=== PATIENT | female | born 1945 | race Caucasian/White ===

== ENCOUNTER → 2018-05-03 | Outpatient (CLI) | payer MEDICARE, OTHER ==
[2016-01-26 16:56] VITALS: BMI 29.4
[~2018-05-03] MED LIST: AMOX-559 PO; ASPI81TA86 PO; BIOT1CAP PO; CALC-852 PO; CLOP75TA43 PO; DIPH0.5D12 IM; FAMC500T18 PO; GLUC100026 PO; GUAI120L3 PO; HYDR-385 PO; LEVO75TA73 PO; LISI2.5T60 PO; MAGN250T34 PO; MAGN500T6 PO; METO25TA93 PO; MULT-865 PO; NITR0.4T3 SL; OMEG100027 PO; OMEG500C7 PO; OXYC-373 PO; PER PO; PNEU0.5D3 IM; PRAV40TA78 PO; ROSU20TA13 PO; lis
--- NOTE | 2018-05-06 09:06 | RADIOLOGY IMAGING REPORT ---
FACILITY: [facility] PATIENT NAME: MIYA MIRANDA : [id number] MR: [id number] V: [id number] EXAM DATE: ORDERING PHYSICIAN: KEZIA SARMIENTO TECHNOLOGIST: Laury Salter PROCEDURE:BILATERAL DIGITAL SCREENING MAMMOGRAM WITH CAD ASSISTED INTERPRETATION & 3D TOMOSYNTHESIS COMPARISON:Prior mammograms 12/20/16, 12/01/15, 11/26/14, 11/26/13, 11/07/12, 11/02/11. INDICATIONS:Screening FINDINGS: Moderately dense fibroglandular tissue is seen throughout the breasts. The parenchymal pattern has remained stable allowing for difference in mammographic technique & patient positioning. There is no evidence of malignant appearing mass, malignant appearing calcifications or other secondary sign of malignancy in either breast. DIAGNOSTIC CATEGORY 1--NEGATIVE. RECOMMENDATIONS: ROUTINE MAMMOGRAM AND CLINICAL EVALUATION. IMPRESSION: BIRADS 1: Negative. No significant abnormality is seen. Dictated by: Anastasia Maldonado M.D. on 05/03/2018 at 15:41 Transcribed by: MICHI on 05/03/2018 at 15:51 Approved by: Anastasia Maldonado M.D. on 05/06/2018 at 9:05 [facility]
== END ==
LOC: MAMO 03:52
PROVIDERS: ATTEND Emergency Medicine
DX: Z12.31 Encounter for screening mammogram for malignant neoplasm of breast (principal)
CPT/HCPCS: 77063; 77067

== ENCOUNTER → 2018-07-18 | Outpatient (CLI) | payer MEDICARE, OTHER ==
[2016-01-26 16:56] VITALS: BMI 29.4
[~2018-07-18] MED LIST changes: +BIOT250012 PO; +CA C1TAB6 PO; +CIPR-214 PO; +CIPR-345 PO; +LISI-362 PO; +ROS10 FT; -ROSU20TA13 PO; +ROSU20TA23 PO; +ROSU20TA5 PO
== END ==
LOC: LAB 12:51
PROVIDERS: ATTEND Emergency Medicine
DX: N39.0 Urinary tract infection, site not specified (principal)
CPT/HCPCS: 81001

== ENCOUNTER 2018-07-23 00:54 | Observation (INO) | payer MEDICARE, OTHER ==
[2018-07-10 07:50] LABS: PLATELET COUNT, AUTOMATED 188 K/uL (150-450)
--- NOTE | 2018-07-10 07:52 | EKG ---
[place] [facility] [place]IENT NAME: MIYA MIRANDA : [id number] MR: [id number] V: [id number] EXAM DATE: ORDERING PHYSICIAN: JOSHUA ALTMAN TECHNOLOGIST: ELYSIA Delgado Reason : PREOP-KNEE Blood Pressure : / mmHG Vent. Rate : 058 BPM Atrial Rate : 058 BPM P-R Int : 166 ms QRS Dur : 092 ms QT Int : 432 ms P-R-T Axes : 073 -36 045 degrees QTc Int : 424 ms Sinus bradycardia Left axis deviation Abnormal ECG When compared with ECG of 29-NOV-2015 11:38, No significant change was found Confirmed by JB BROCK ([id number] on 07/10/2018 11:45:11 AM Referred By: AGAPITO Confirmed By:JB BROCK
[2018-07-22 13:44] LABS: INR 0.99
[2018-07-23] VITALS (14 sets, daily range): BP systolic 101–132; BP diastolic 49–73
[~2018-07-23] VITALS: Ht 165.1 cm; Wt 81.2 kg
[~2018-07-23 00:54] MED LIST changes: -ROS10 FT; -ROSU20TA23 PO
[2018-07-23] MEDS ORDERED: fentaNYL CITR 100 MCG/2 ML AMP ONE (08:32)
[2018-07-23] MEDS ORDERED: LIDOCAINE 2% IV 100 MG/5ML SYR ONE (08:32)
[2018-07-23] MEDS ORDERED: PROPOFOL EMUL(*) 10MG/ML 20 ML 20 ML ONE (08:34)
[2018-07-23] MEDS ORDERED: ASPIRIN 81 MG ENTERIC COATED PO ONE (10:00)
[2018-07-23] MEDS ORDERED: PREGABALIN 75 MG CAPSULE PO ONE (10:15)
[2018-07-23] MEDS ORDERED: CELECOXIB 200 MG CAP PO ONE (10:15)
[2018-07-23] MEDS ORDERED: TRANEXAMIC AC 1000 MG/10ML SDV 1,000 MG in DEXTROSE 5% 50 ML BAG 50 ML IV ONE (10:15)
[2018-07-23] MEDS ORDERED: LIDOCAINE/SOD BICARB 8.4% SYR ID ONE (10:15)
[2018-07-23] MEDS ORDERED: cloNIDine EPIDUR INJ 100MCG/ML 40 MCG, ROPIVACAINE 0.5% 20 ML VIAL 25 ML, EPINEPHrine H... INJ ONE (10:15)
[2018-07-23] MEDS ORDERED: CLINDAMYCIN 900 MG/D5W 50 ML 50 ML IVPB ONE (10:15)
[2018-07-23] MEDS ORDERED: BACITRACIN 50000 UNIT/VIAL 100,000 UNIT in NS 0.9% 3000 ML IRRIGATION BAG 3,000 ML IR ONE (10:15)
[2018-07-23] MEDS ORDERED: ACETAMINOPHEN 500 MG TAB PO ONE (10:15)
[2018-07-23] MEDS ORDERED: MIDAZOLAM 2 MG/2 ML VIAL IVP PRN (10:15)
[2018-07-23] MEDS ORDERED: NORMOSOL R SOLN(*) 1000 ML BAG 1,000 ML IV PRN (10:15)
[2018-07-23] MEDS ORDERED: FAMOTIDINE 20 MG TAB PO ONE (10:15)
[2018-07-23] MEDS ORDERED: DEXAMETHASONE SOD PHOS 10MG/ML ONE ×2 (11:27→14:47)
[2018-07-23] MEDS ORDERED: ONDANSETRON 4 MG/2 ML VIAL ONE ×2 (11:28→14:48)
[2018-07-23] MEDS ORDERED: KETAMINE HCL 200 MG/20 ML MDV ONE (11:32)
[2018-07-23] MEDS ORDERED: NS 0.9% IRRIGATION 1000ML PLCT IR ONE (11:55)
[2018-07-23] MEDS ORDERED: LR 1000 ML BAG 1000 ML IV PRN (13:40)
[2018-07-23] MEDS ORDERED: PROMETHAZINE 25 MG/ML 1 ML AMP IVP PRN (13:40)
[2018-07-23] MEDS ORDERED: MAGNESIUM HYDROXIDE* 30ML UDCP PO PRN (13:40)
[2018-07-23] MEDS ORDERED: HYDROmorphone HCL 2 MG/ML SDV IVP PRN (13:40)
[2018-07-23] MEDS ORDERED: diphenhydrAMINE 50 MG/ML VIAL IVP PRN (13:40)
[2018-07-23] MEDS ORDERED: diphenhydrAMINE 25 MG CAP PO PRN (13:40)
[2018-07-23] MEDS ORDERED: ZOLPIDEM TARTRATE 5 MG TAB PO PRN (13:40)
[2018-07-23] MEDS ORDERED: MAGNESIUM CITRATE 300 ML BTL PO PRN (13:40)
[2018-07-23] MEDS ORDERED: ONDANSETRON 4 MG/2 ML VIAL IVP PRN (13:40)
[2018-07-23] MEDS ORDERED: BISACODYL 10 MG SUPP PR PRN (13:40)
[2018-07-23] MEDS ORDERED: FLUSH 10 ML SYR IVP PRN (13:40)
--- NOTE | 2018-07-23 14:12 | RADIOLOGY IMAGING REPORT ---
FACILITY: [facility] PATIENT NAME: Sofia Silverman : 1945 MR: [id number] V: [id number] EXAM DATE: ORDERING PHYSICIAN: JOSHUA ALTMAN TECHNOLOGIST: Location: [facility] Patient: Sofia Silverman : 1945 Visit/Account:[id number] Date of Sevice: 07/23/2018 Exam type: KNEE LIMITED LEFT History: POST-OP LEFT TOTAL KNEE Comparison: None. Findings: AP and lateral views the left knee demonstrate a left knee arthroplasty in good anatomic alignment. Soft tissue gas projects over the anterior aspect this postoperative knee IMPRESSION: 1. As above Report Dictated By: Anastasia Maldonado MD at 07/23/2018 2:06 PM Report E-Signed By: Anastasia Maldonado MD at 07/23/2018 2:07 PM WSN:[email or web address]
[2018-07-23] MEDS ORDERED: ROS10 FT (15:05)
[2018-07-23] MEDS ORDERED: METOPROLOL TART 50 MG TAB PO PRN (15:35)
--- NOTE | 2018-07-23 15:49 | Hospitalist Consultation ---
History of Present Illness Requesting Physician Dr Ulrich Reason for Consult management of medical comorbidities Chief Complaint L knee osteoarthritis History of Present Illness Thank you for the consultation and allowing us to participate in this patient's care. 72F admitted for observation after L TKA. Procedure appears to have been uneventful, no concerns voiced by patient or spouse. PMHx significant for SVT for which she takes PRN metoprolol tartrate, has not taken this medication since being prescribed. She is also on 81mg ASA, rosuvastatin. Per family she continued to play golf up until surgery and has very great functional status. History Problems: (1) Hypercholesteremia Status: Chronic (2) Coronary artery disease Status: Chronic (3) History of paroxysmal supraventricular tachycardia Status: Chronic Home Meds Active Scripts Magnesium Oxide (MAGNESIUM OXIDE) 500 Mg Tablet, 1 TAB PO DAILY, #1 Prov:KEZIA SARMIENTO MD 04/23/18 Levothyroxine Sodium (LEVOTHYROXINE SODIUM) 75 Mcg Tablet, 75 MCG PO QDAY, #90 TAB 3 Refills Prov:KEZIA SARMIENTO MD 12/17/17 Reported Medications Rosuvastatin Calcium (CRESTOR) 10 Mg Tab, 10 MG FT QDAY, TAB 07/23/18 Biotin (BIOTIN) 2,500 Mcg Capsule, 2500 MCG PO DAILY, CAPSULE 07/16/18 Nitroglycerin (NITROGLYCERIN) 0.4 Mg Tab.subl, 0.4 MG SL Q5MIN PRN for CHEST PAIN 07/16/18 Metoprolol Tartrate (METOPROLOL TARTRATE) 25 Mg Tablet, 1 TAB PO PRN for SVT, #1 TAB 04/23/18 [place]-3 Fatty Acids (FISH OIL CONCENTRATE) 1,000 Mg Capsule, 2 CAP PO DAILY, CAPSULE 12/04/16 Glucosamine Sulfate 2KCL (GLUCOSAMINE) 1,000 Mg Tablet, 1 CAP PO QDAY 12/21/15 Multivitamin (DAILY MULTIPLE VITAMIN) 1 Each Tablet, 1 EACH PO QDAY 12/21/15 Aspirin (ASPIRIN EC) 81 Mg Tablet., 1 TAB PO DAILY 07/22/13 Discontinued Reported Medications Ciprofloxacin Hcl (CIPROFLOXACIN HCL) 500 Mg Tablet, 250 MG PO BID, #14 TAB 07/16/18 Rosuvastatin Calcium (Rosuvastatin Calcium) 20 Mg Tablet, 20 MG PO DAILY 07/16/18 Lisinopril (LISINOPRIL) 10 Mg Tablet, 12.5 MG PO QDAY, TAB 07/16/18 Ca Carbonate/Vitamin D3/Vit K (CALCIUM + D SOFT CHEWABLE TAB) 1 Each Tab.chew, 1 EACH PO DAILY, TAB.CHEW 07/16/18 Pravastatin Sodium (PRAVASTATIN SODIUM) 40 Mg Tablet, 40 MG PO QDAY 07/16/18 Discontinued Scripts Ciprofloxacin 250 Mg (CIPROFLOXACIN 250 MG) 250 Mg Tablet, 250 MG PO BID, #10 TAB 0 Refills Prov:KEZIA SARMIENTO MD 07/12/18 Rosuvastatin Calcium (Rosuvastatin Calcium) 20 Mg Tablet, 1 TAB PO DAILY, #90 TAB 3 Refills Prov:KEZIA SARMIENTO MD 01/07/18 Allergies: Coded Allergies: amoxicillin (Verified Allergy, Unknown, 04/23/18) Uncoded Allergies: HAYFEVER (Allergy, Unknown, 07/22/13) Patient History: FH: HTN (hypertension) MOTHER, , Age:96 sisters sisters sisters FH: total knee replacement Hx Smoking: No Smoking Status: Never Smoker Caffeine/Cups Per Day: NONE Hx Alcohol Use: Yes Hx Substance Use Disorder: No Social Drug Use: Never Review of Systems All Systems Reviewed/Normal: Yes, Except as Noted Gastrointestinal: No Nausea, No Vomiting Musculoskeletal: Pain (post operative, well controlled) Exam Vital Signs Vital Signs Date Time Temp Pulse Resp B/P (MAP) Pulse Ox O2 Delivery O2 Flow Rate FiO2 07/23/18 14:59 96.9 60 16 113/64 (80) 94 Nasal Cannula 3.0 General Appearance: Alert, Awake, No Acute Distress Neuro: No Gross deficits Eyes: PERRLA ENT: Normal Neck: No Masses Cardiovascular: Normal Rhythm & Peripheral Pulses Respiratory: No Respiratory Distress GI: Abd Soft and Non-Tender Extremities: Soft and Non Tender, Warm, Pulses, Perfused; No Edema Integumentary: Skin Intact without Lesion / Mass Psych: Alert & Oriented X3 Assessment and Plan Problems: (1) Osteoarthritis of left knee Assessment & Plan: Post L knee arthroplasty. Will begin ASA 325mg for anticoagulation, PT/OT. Anticipate 2 nights stay and discharge home with outpatient PT. (2) Coronary artery disease Status: Chronic Assessment & Plan: On chronic rosuvastatin, ASA 81mg. Holding 81mg ASA while on 325mg dose. (3) History of paroxysmal supraventricular tachycardia Status: Chronic Assessment & Plan: On chronic PRN metoprolol. Will continue with instruction to let provider know if dose is given as she usually does not take this and may warrant further evaluation. (4) Hypothyroidism Status: Chronic Assessment & Plan: On chronic levothyroxine. Continue. Venous Thromboembolism Antithrombotics Is Pt On Any Antithrombotics?: Yes Exam Sepsis Risk: No Definite Risk MULTANI LAUREANO HUTCHISON DO Jul 23, 2018 15:49
--- NOTE | 2018-07-23 16:15 | OPERATIVE REPORT 1 ---
EVENT DATE: July 23, 2018 SURGEON: Artis Ulrich MD ANESTHESIOLOGIST: Blair Roberto MD ANESTHESIA: General plus spinal. UPPERS EDGE BURNISHER: Fidel Arcos PA-C PREOPERATIVE DIAGNOSIS Left knee osteoarthritis. POSTOPERATIVE DIAGNOSIS Left knee osteoarthritis. PROCEDURE PERFORMED Left total knee arthroplasty. FINDINGS The patient had a significant amount of arthritic changes in the patellofemoral joint and loose fragments associated with this and also lateral cartilage wear. ESTIMATED BLOOD LOSS About 200 mL. DRAINS None. COMPLICATIONS None. TOURNIQUET TIME About 16 minutes. IMPLANTS USED [employer] Attune posterior stabilized, narrow 6 femoral component with a size 5 rotating platform tibia, a 6 x 6 rotating platform posterior stabilized poly insert, and a 35 anatomic patella. SPECIMENS None. INDICATIONS AND HISTORY This patient is a 72-year-old female who presented to the clinic for evaluation of left knee pain and irritation going on for some time. She continued to have pain and irritation despite conservative management, and so therefore, she wanted to go ahead with a total knee arthroplasty. We talked about the implications of the heterotopic ossification, the extra bone spurs around her knee, and that we may not be able to clear all these out, and she understood that, and also there was no guarantee associated with a total knee arthroplasty, and she would have to stay a night in the hospital. After discussion of those risks and benefits, informed consent was obtained at the last clinic visit, and we got her set up to do this today. DESCRIPTION OF PROCEDURE As the patient was brought into the operating room, she and the procedure were both verified. She was given a spinal and then induced and intubated by Anesthesia and laid in the standard supine position. The left leg was then prepped and draped in the usual fashion. A timeout was observed verifying the correct patient and procedure. The standard incision was made over the anterior aspect of the knee. The skin was incised then all the way down to the medial parapatellar approach. I performed a medial parapatellar approach to get into the knee itself. This was when there was noted to be the large osteophytes and heterotopic ossification in this area. I was able to excise these fragments without any major difficulty, and this allowed greater access to the patella. Once I got good access to the patella, I then removed a significant amount of osteophytes off this area, and this helped with exposure for the entirety. I then removed the anterior fat pad as well as the anterior aspect of the medial and lateral menisci, and then I was able to high flex the knee in order to remove the ACL and PCL remnants. I then drilled with the Attune system from [employer] intramedullary drill and then put in the intramedullary guide. Once I was able to do this, I was able to cut 9 mm off the distal femur using the standard jig and then put on the sizing for the femur and found her to be a 6. So therefore, I put on the 6 four-in-one cutting block and then was able to cut the anterior and posterior cuts. I removed the pins and then cut the chamfer cuts without any difficulty. This was then followed by placement of the notch cutting block and then cutting the notch with any major issue, then looking and analyzing and determining that a narrow 6 was needed for the femur. I then turned attention to the tibia where I was able to remove the rest of the posterior menisci and also do some releases associated with this. I was then able to drill the standard guide for the true intramedullary guide down the tibia and then was able to put the intramedullary cutting guide onto the front part of the tibia in order to cut 2 mm off the lateral side, which was the low side for this area. Once I did this, I was then able to cut the top proximal tibia without any difficulty, and then I was able to clean off the rest of the posterior capsule and some of the medial meniscus which had fallen back into the posterior space. I then removed the remainder of the PCL and was able to subluxate the tibia forward. We size it to a 5 and then prepped the tibia without any difficulty. I then removed some posterior osteophytes off the posterior aspect, a little bit more off the medial than the lateral side, and then was able to put the femoral component on and trial the tibial and femoral components without any difficulty with a 5 mm poly. This was found to be just a little bit loose in flexion, so therefore we trialed the 6. I was able to still get it to full extension and then flex it, and there were no signs of major instability, so the 6 poly was chosen. I then turned attention to the patella where we were able to foreign it and cut about 7.5 mm off of this area. I then prepped it and got it sized for a 35 and then drilled the lug nut holes for the femur without any difficulty. We put up the tourniquet and then cleaned everything out, washed it with copious amounts of saline, put a bone plug within the femur, and then we were able to cement the components in without any difficulty. Once the components were cemented in, we let down the tourniquet after 16 minutes, and then the wound was closed. This was closed by using a 0 Stratafix through the medial parapatellar approach. This was then followed by 2-0 Vicryl in the large fat layer, then a 2-0 Stratafix in the subcutaneous layer, then a 4-0 subcuticular running Monocryl, and then a bio-occlusive dressing was applied. We also put in a capsular cocktail injection to try to decrease pain in this area. JIMMY
[2018-07-23] MEDS: CLINDAMYCIN 150 MG CAP PO SCH (18:34)
[2018-07-23] MEDS ORDERED: ASPIRIN 325 MG TAB PO SCH (21:00)
[2018-07-24] MEDS: CLINDAMYCIN 150 MG CAP PO SCH ×2 (03:18→11:32)
[2018-07-24 03:20] VITALS: BP 115/71
[2018-07-24] MEDS: LEVOTHYROXINE SOD 0.075 MG TAB PO SCH (05:56)
[2018-07-24 08:57] VITALS: BP 103/53
[2018-07-24] MEDS: MAGNESIUM OXIDE 400 MG TAB PO SCH ×2 (08:59→09:00)
[2018-07-24] MEDS: ROSUVASTATIN CALCIUM 10 MG TAB PO SCH ×2 (08:59→09:00)
[2018-07-24 09:59] VITALS: Ht 165.1 cm; Wt 81.2 kg
[2018-07-24] MEDS ORDERED: BACITRACIN 50000 UNIT/VIAL 100,000 UNIT in NS 0.9% 3000 ML IRRIGATION BAG 3,000 ML IR ONE (10:15)
--- NOTE | 2018-07-24 10:46 | Hospitalist Progress Note ---
Subjective Progress Notes Subjective She has no complaints this morning. She had no acute events overnight. Patient Complains of: Cardiovascular: No: Chest Pain Respiratory: No: Shortness of Breath Physical Exam Vital Signs Date Time Temp Pulse Resp B/P (MAP) Pulse Ox O2 Delivery O2 Flow Rate FiO2 07/24/18 09:13 Room Air 07/24/18 08:57 98.1 61 18 103/53 (70) 95 1.0 Intake and Output 07/24/18 07:00 Intake Total 2560 ml Balance 2560 ml Intake Oral 860 ml IV Total 1700 ml # Voids 2 General Appearance: Alert, Awake, No Acute Distress, Afebrile Neuro: No Gross deficits Cardiovascular: Regular Rate and Rhythm Respiratory: No Respiratory Distress, Clear to Auscultation Psych: Alert & Oriented X3, Appropriate Mood & Affect Result Diagram: 07/24/18 0555 Assessment and Plan Problems: (1) Osteoarthritis of left knee Assessment & Plan: Post L knee arthroplasty. Will begin ASA 325mg for anticoagulation. She did take her own medications this morning, to include Aspirin 81mg. Her aspirin dose tonight will be adjusted to reflect the dose this morning she took. (2) Coronary artery disease Status: Chronic Assessment & Plan: On chronic rosuvastatin, ASA 81mg. Holding 81mg ASA while on 325mg dose. (3) History of paroxysmal supraventricular tachycardia Status: Chronic Assessment & Plan: On chronic PRN metoprolol. Will continue with instruction to let provider know if dose is given as she usually does not take this and may warrant further evaluation. (4) Hypothyroidism Status: Chronic Assessment & Plan: On chronic levothyroxine. Continue. Exam Sepsis Risk: No Definite Risk TRAMAINE BELLA CLERICAL ORDER FILLER Jul 24, 2018 10:45
[2018-07-24] MEDS ORDERED: ROSU20TA23 PO (10:55)
[2018-07-24 11:32] VITALS: BP 106/52
[2018-07-24 14:09] VITALS: BP 126/67
[2018-07-24 20:20] VITALS: BP 126/63
[2018-07-24] MEDS ORDERED: ASPIRIN 81 MG CHEW PO ONE (21:00)
[2018-07-24 23:28] VITALS: BP 151/66
[2018-07-25 02:34] VITALS: BP 149/79
[2018-07-25] MEDS: LEVOTHYROXINE SOD 0.075 MG TAB PO SCH (05:15)
[2018-07-25 07:13] VITALS: BP 127/55
[2018-07-25] MEDS ORDERED: OXYC-865 PO (07:45)
[2018-07-25] MEDS: MAGNESIUM OXIDE 400 MG TAB PO SCH (09:30)
[2018-07-25] MEDS: ROSUVASTATIN CALCIUM 10 MG TAB PO SCH (09:30)
[2018-07-25] MEDS ORDERED: ASPI-757 PO (10:02)
--- NOTE | 2018-07-25 10:05 | Hospitalist Progress Note ---
Subjective Progress Notes Subjective She has no complaints this morning. She had no acute events overnight. Patient Complains of: Cardiovascular: No: Chest Pain Respiratory: No: Shortness of Breath Physical Exam Vital Signs Date Time Temp Pulse Resp B/P (MAP) Pulse Ox O2 Delivery O2 Flow Rate FiO2 07/25/18 07:41 88 07/25/18 07:41 Room Air 07/25/18 07:13 97.7 63 18 127/55 (79) 1.0 Intake and Output 07/25/18 01:00 Intake Total 1120 ml Balance 1120 ml Intake Oral 1120 ml # Voids 5 General Appearance: Alert, Awake, No Acute Distress, Afebrile Neuro: No Gross deficits Cardiovascular: Regular Rate and Rhythm Respiratory: No Respiratory Distress, Clear to Auscultation GI: Soft and Non-Tender Psych: Alert & Oriented X3, Appropriate Mood & Affect Result Diagram: 07/25/18 0518 Assessment and Plan Problems: (1) Osteoarthritis of left knee Assessment & Plan: Post L knee arthroplasty. She will continue ASA 325mg for 30 days for anticoagulation. (2) Coronary artery disease Status: Chronic Assessment & Plan: On chronic rosuvastatin, ASA 81mg. Holding 81mg ASA while on 325mg dose, she then will resume after 30 days. (3) History of paroxysmal supraventricular tachycardia Status: Chronic Assessment & Plan: On chronic PRN metoprolol. Will continue with instruction to let provider know if dose is given as she usually does not take this and may warrant further evaluation. (4) Hypothyroidism Status: Chronic Assessment & Plan: On chronic levothyroxine. Continue. (5) Hypoxia Status: Acute Assessment & Plan: Post-operatively, she has required oxygen. She will be sent home with oxygen. She will follow up with PCP next week regarding oxygen usage. Copies to: KEZIA SARMIENTO MD ; Exam Sepsis Risk: No Definite Risk TRAMAINE BELLA RESEARCH AND DEVELOPMENT SCIENTIST Jul 25, 2018 10:05
[2018-07-25] MEDS ORDERED: ASPIRIN 325 MG TAB PO SCH (21:00)
== END 2018-07-25 14:08 | disposition home or self-care (01) ==
LOC: OR 00:54 → MED 14:55
PROVIDERS: ADMIT Orthopaedic Surgery; ATTEND Orthopaedic Surgery
DX: M17.12 Unilateral primary osteoarthritis, left knee (principal); I49.9 Cardiac arrhythmia, unspecified; Z79.82 Long term (current) use of aspirin
CPT/HCPCS: 27447; 36415; 73560; 81001; 85014; 85018; 85025; 85610; 86850; 86900; 86901; 87077; 87088; 87186; 93005; 97116; 97161; 97530; A9270; C1713; C1776; G0378; J0171; J0735; J1100; J1885; J2001; J2250; J2405; J2704; J2795; J3010; J3490; J7050; J7060; 82040; 82247; 82310; 82374; 82435; 82565; 82947; 84075; 84132; 84155; 84295; 84450; 84460; 84520

== ENCOUNTER → 2018-07-31 | Outpatient (CLI) | payer MEDICARE, OTHER ==
[2018-07-24 09:59] VITALS: BMI 29.8
[~2018-07-31] MED LIST changes: +ASPI-757 PO; +IOPAMIDOL 76% 75 ML INFUS BTL 75 ML ONE; +NS(*) 0.9% 50 ML BAG 50 ML ONE; +OXYC-865 PO; +ROS10 FT; +ROSU20TA23 PO
--- NOTE | 2018-07-31 16:35 | RADIOLOGY IMAGING REPORT ---
FACILITY: [facility] - [place], [place] PATIENT NAME: Sofia Silverman : 1945 MR: [id number] V: [id number] EXAM DATE: ORDERING PHYSICIAN: KEZIA SARMIENTO TECHNOLOGIST: Location: [facility] [place] Patient: Sofia Silverman : 1945 Visit/Account:[id number] Date of Sevice: 07/31/2018 Exam type: CHEST PA AND LAT History: Hypoxia Comparison: November 29, 2015. Findings: The lungs are free of acute effusions, infiltrates or edema. Cardiac silhouette is borderline enlarg ed. The trachea is in midline. There are spondylotic changes of the thoracic spine and bilateral sh oulder arthroplasties IMPRESSION: 1. No acute cardiopulmonary process is seen Report Dictated By: Anastasia Maldonado MD at 07/31/2018 4:00 PM Report E-Signed By: Anastasia Maldonado MD at 07/31/2018 4:31 PM WSN:[email or web address]
--- NOTE | 2018-07-31 17:31 | RADIOLOGY IMAGING REPORT ---
[place] [facility] [place]: Sofia Silverman : 1945 MR: [id number] V: [id number] EXAM DATE: ORDERING PHYSICIAN: KEZIA SARMIENTO TECHNOLOGIST: Location: [facility] Patient: Sofia Silverman : 1945 Visit/Account:[id number] Date of Sevice: 07/31/2018 CTA CHEST WW/O CNTR (PULM ANG) HISTORY: Elevated d-dimer, hypoxiaelevated D-dimer, hypoxia ADDITIONAL HISTORY: None. TECHNIQUE: CTA chest with intravenous contrast. Axial imaging acquired following administration of IV contrast timed for maximum opacification of the pulmonary arterial vasculature. Slab 3-D MIP gentry nstructed images were also created for further evaluation and interpretation. [facility]construction of the [facility] data set includes multiplanar 2-D in the sagittal and coronal planes and 3-D reconstructed rocio nal slab MIP series. 3-D images were created by the technologist. Dose Lowering Technique One of the following dose optimization techniques was utilized in the performance of this exam: Autom ated exposure control; adjustment of the mA and/or kV according to the patient's size; or use of an i terative reconstruction technique. Specific details can be referenced in the facility's radiology C T exam operational policy. CONTRAST: 75 mL Isovue-370 COMPARISON: None. FINDINGS: Lungs/pleura: Small amount of linear stranding in the inferior right middle lobe and lingula may rep resent mild scarring versus atelectasis. Heart/vessels: There is no evidence of pulmonary emboli. The left main pulmonary artery appears pro minent relative to the right There are coronary artery vascular calcifications. There is a trace per icardial effusion. Mild cardiomegaly Mediastinum/lymph nodes: Negative. Visualized upper abdomen: Small cysts in the left lobe of the liver. Additional small hypodensities are too small to characterize although may represent additional cysts Bones/soft tissues: There are bilateral shoulder arthroplasties producing numerous artifacts. There are spondylotic changes in the thoracic spine and an S-shaped scoliosis Additional findings: None IMPRESSION: No evidence of pulmonary emboli. Left Main pulmonary artery appears prominent relative to the right Trace pericardial effusion Coronary artery vascular calcifications Small amount linear stranding in the inferior right middle lobe and lingula may represent scarring ve rsus atelectasis Results were called to KEZIA SARMIENTO at 07/31/2018 5:27 PM. Report Dictated By: Anastasia Maldonado MD at 07/31/2018 5:12 PM Report E-Signed By: Anastasia Maldonado MD at 07/31/2018 5:27 PM WSN:[email or web address]
== END ==
LOC: RAD 15:29
PROVIDERS: ATTEND Emergency Medicine
DX: I31.3 Pericardial effusion (noninflammatory) (principal); I25.84 Coronary atherosclerosis due to calcified coronary lesion; K76.89 Other specified diseases of liver; M47.812 Spondylosis without myelopathy or radiculopathy, cervical region; M41.9 Scoliosis, unspecified; R09.02 Hypoxemia; R79.89 Other specified abnormal findings of blood chemistry
CPT/HCPCS: 36415; 71046; 85379; J7050; Q9967; 71275